=== PATIENT | female | born 1980 | race African-American/Black ===

== ENCOUNTER 2016-11-04 11:05 | Emergency (ER) | payer OTHER ==
[~2016-11-04] VITALS: Ht 167.6 cm; Wt 108.9 kg
[~2016-11-04 11:05] MED LIST: ACCUNEB SO1.25 MG/1; AMBIEN 10 MG TA10 MG PO; AMBIEN 5 MG TABL5 M1 PO; ATIVAN1 MG PO; BACTRIM DS TAB1 EACH PO; BENTYL 20 MG TA20 M1 PO; BUSPIRONE HCL10 MG PO; CITRATE OF MAG296 ML PO; CLEOCIN HCL150 MG PO; CLONAZEPAM 1 MG1 M1 PO; COLACE100 MG PO; COMPAZINE10 M2 PO; COMPAZINE10 MG PO; CREON DR 12,001 EACH PO; CYCLOBENZAPRINE5 MG PO; CYMBALTA60 MG PO; DIFLUCAN150 MG PO; DILAUDID 4 MG TA4 M1 PO; DILAUDID PO; FISH OIL 1,001000 M2 PO; FLAGYL500 M1 PO; GABAPENTIN PORT; GABAPENTIN100 MG; GABAPENTIN800 M1 PO; HYCET 7.5 MG-3473 ML PO; IBUPROFEN 600600 M1 PO; LATUDA80 MG PO; LEXAPRO20 MG PO; LOPRESSOR25 PO; LUNESTA2 MG; MECLIZINE HCL25 M1 PO; METOPROLOL SUCC50 MG PO; NEURONTIN600 MG PO; NICOTINE TRANSD14 M1 SUBQ; NORCO 10-325 T1 EACH PO; NORCO 5-325 TA1 EACH PO; NORFLEX100 MG PO; NORVASC10 MG PO; NORVASC5 MG PO; OMEPRAZOLE20 M2 PO; OXYCONTIN10 M1 PO; PERCOCET 5-3251 EACH PO; PERCOCET PO; PHENERGAN 25 MG25 M1 PO; PHENERGAN25 M1 RC; PREDNISONE 20 M20 M1 PO; PRILOSEC 20 MG20 MG PO; PRILOSEC40 MG PO; PROCHLORPERAZIN10 MG PO; PROMS25 WY RECTAL; RESTORIL15 MG PO; TIGAN300 MG PO; TONALIN CLA 11000 MG PO; TOPAMAX100 MG PO; TOPAMAX50 MG; TOPROL XL50 MG PO; TRAMADOL 50 MG50 MG PO; TRANSDERM-SCO1 PATC1 TD; ULTRAM 50MG TAB50 MG PO; VITAMIN D 5050000 I1 PO; WELLBUTRIN XL150 MG PO; XANAX 0.5 MG0.5 M1 PO; XANAX 0.5 MG0.5 MG PO; XANAX 1 MG TABLE1 MG PO; ZALEPLON 10 MG10 M1 PO; ZENPEP DR 25,01 EACH PO; ZOFRAN ODT4 MG PO; ZOFRAN4 MG PO
[2016-11-04] MEDS ORDERED: ZANAFLEX4 MG PO (11:18)
[2016-11-04] MEDS ORDERED: OXYCODONE HCL 55 MG PO (11:19)
[2016-11-04 13:14] LABS: EOSINOPHILS 0.2 % (0.0-3.0); HEMATOCRIT 42.5 % (37.0-47.0); HEMOGLOBIN 13.9 gm/dL (12.0-15.0); MCH 28.2 pg (26.0-34.0); MCHC 32.7 g/dL (28.0-37.0); MCV 86.2 fL (80.0-100.0); PLATELET COUNT 517 thou/uL (150-400); POLYS 57.8 % (36.0-66.0); RBC 4.92 mil/uL (4.20-5.00); RDW 13.2 % (10.5-14.5); WBC 12.2 thou/uL (4.0-11.0)
[2016-11-04 13:21] LABS: MANUAL DIFF NO
[2016-11-04 13:25] LABS: CREATININE 1.2 mg/dL (0.6-1.0); POTASSIUM 4.2 mmol/L (3.5-5.1)
[2016-11-04] MEDS ORDERED: VALIUM5 MG PO (15:31)
[2016-11-04] MEDS ORDERED: LIDOCAINE 2%2 %/5 GM MM (15:31)
[2016-11-04] MEDS ORDERED: BUTALB-APAP-CA1 EACH PO (15:31)
== END 2016-11-04 15:32 | disposition home or self-care (01) ==
LOC: ER 11:05
PROVIDERS: Emergency Medicine
DX: R51 Headache (principal); R42 Dizziness and giddiness; I10 Essential (primary) hypertension; M79.7 Fibromyalgia; F41.9 Anxiety disorder, unspecified; E66.01 Morbid (severe) obesity due to excess calories; K58.9 Irritable bowel syndrome, unspecified; F31.9 Bipolar disorder, unspecified; F17.210 Nicotine dependence, cigarettes, uncomplicated; Z68.38 Body mass index [BMI] 38.0-38.9, adult; Z90.49 Acquired absence of other specified parts of digestive tract; Z91.040 Latex allergy status; Z91.018 Allergy to other foods; Z88.5 Allergy status to narcotic agent; Z88.0 Allergy status to penicillin

== ENCOUNTER 2017-02-01 15:27 | Emergency (ER) | payer OTHER ==
[~2017-02-01] VITALS: Ht 172.7 cm; Wt 90.7 kg
[~2017-02-01 15:27] MED LIST changes: +BUTALB-APAP-CA1 EACH PO; +LIDOCAINE 2%2 %/5 GM MM; +OXYCODONE HCL 55 MG PO; +VALIUM5 MG PO; +ZANAFLEX4 MG PO
[2017-02-01] MEDS ORDERED: BACTRIM DS TAB1 EACH PO (16:09)
[2017-02-01] MEDS ORDERED: NORCO 10-325 T1 EACH PO (16:09)
== END 2017-02-01 16:28 | disposition home or self-care (01) ==
LOC: ER 15:27
DX: L02.412 Cutaneous abscess of left axilla (principal); L02.411 Cutaneous abscess of right axilla

== ENCOUNTER 2017-07-21 12:40 | Emergency (ER) | payer OTHER ==
[~2017-07-21] VITALS: Ht 165.1 cm; Wt 104.3 kg
[~2017-07-21 12:40] MED LIST changes: +MOBIC15 MG PO
[2017-07-21 13:03] LABS: URINE BILIRUBIN NEGATIVE (Negative); URINE BLOOD 1+ (Negative); URINE CLARITY CLEAR; URINE COLOR YELLOW; URINE GLUCOSE-RANDOM* NEGATIVE (Negative); URINE KETONES TRACE (Negative); URINE LEUKOCYTES NEGATIVE (Negative); URINE NITRITE NEGATIVE (Negative); URINE PROTEIN (DIPSTICK) NEGATIVE (Negative); URINE SPECIFIC GRAVITY 1.025 (1.005-1.035); URINE UROBILINOGEN 0.2 E.U./dl (0.2-1.0)
[2017-07-21 13:17] LABS: SQUAMOUS 0-3 Few /LPF (0-3); URINE RBC 0-2 Rare /HPF (0-2)
[2017-07-21 13:18] LABS: BACTERIA 1-9 Few /HPF (None Seen); CASTS None Seen /LPF (None Seen); CRYSTALS None Seen /LPF (None Seen); URINE WBC 0-5 Rare /HPF (0-5)
[2017-07-21 13:48] LABS: ABSOLUTE NEUTROPHILS 5.4 thou/uL (1.4-8.2); EOSINOPHILS 1.5 % (0.0-3.0); HEMATOCRIT 37.2 % (37.0-47.0); HEMOGLOBIN 12.4 gm/dL (12.0-15.0); LYMPHOCYTES 47.7 % (24.0-44.0); MCH 28.1 pg (26.0-34.0); MCHC 33.2 g/dL (28.0-37.0); MCV 84.7 fL (80.0-100.0); MONOCYTES 6.1 % (1.0-8.0); PLATELET COUNT 449 thou/uL (150-400); POLYS 43.7 % (36.0-66.0); RBC 4.39 mil/uL (4.20-5.00); RDW 14.8 % (10.5-14.5); WBC 12.3 thou/uL (4.0-11.0)
[2017-07-21 13:52] LABS: AMP/METHAMP Negative (Negative); BARBITURATES Negative (Negative); BENZODIAZEPINES POSITIVE (Negative); COCAINE Negative (Negative); METHADONE Negative (Negative); OPIATES POSITIVE (Negative); PCP Negative (Negative)
[2017-07-21 13:56] LABS: CALCIUM 8.9 mg/dL (8.5-10.1); CREATININE 0.9 mg/dL (0.6-1.0); POTASSIUM 3.8 mmol/L (3.5-5.1)
[2017-07-21 15:00] VITALS: BP 142/94
[2017-07-21] MEDS ORDERED: ACETAMINOPHEN-1 EAC1 PO (15:02)
[2017-07-21] MEDS ORDERED: IBUPROFEN 600600 M1 PO (15:02)
[2017-12-23] MEDS ORDERED: CARVEDILOL12.5 MG PO (11:20)
[2017-12-23] MEDS ORDERED: PANTOPRAZOLE SO40 M1 PO (11:20)
[2017-12-23] MEDS ORDERED: COZAAR 50 MG TA50 M1 PO (11:20)
[2017-12-23] MEDS ORDERED: ASPIR 8181 MG PO (11:20)
[2018-01-13] MEDS ORDERED: PROMS25 WY RECTAL (14:22)
[2018-01-13] MEDS ORDERED: NORCO 5-325 TA1 EACH PO (14:22)
[2018-01-13] MEDS ORDERED: ZOFRAN ODT8 MG PO (14:22)
[2018-01-13] MEDS ORDERED: NORVASC5 MG PO (15:28)
[2018-01-14] MEDS ORDERED: MACROBID 100 M100 M1 PO (16:54)
== END 2017-07-21 15:05 | disposition home or self-care (01) ==
LOC: ER 12:40
PROVIDERS: Nurse Practitioner
DX: D25.9 Leiomyoma of uterus, unspecified (principal); I10 Essential (primary) hypertension; M79.7 Fibromyalgia; F31.9 Bipolar disorder, unspecified; F17.210 Nicotine dependence, cigarettes, uncomplicated; Z90.49 Acquired absence of other specified parts of digestive tract; Z91.040 Latex allergy status; Z88.0 Allergy status to penicillin; Z88.6 Allergy status to analgesic agent; Z91.018 Allergy to other foods

== ENCOUNTER → 2017-10-05 | Emergency (ER) | payer OTHER ==
[~2017-10-05] VITALS: Ht 167.6 cm; Wt 104.3 kg
[~2017-10-05] MED LIST changes: +ACETAMINOPHEN-1 EAC1 PO
== END ==
LOC: ER 06:46
DX: R11.2 Nausea with vomiting, unspecified (principal); R10.9 Unspecified abdominal pain; R20.2 Paresthesia of skin; R19.7 Diarrhea, unspecified; F41.9 Anxiety disorder, unspecified; I10 Essential (primary) hypertension; F31.9 Bipolar disorder, unspecified; F17.210 Nicotine dependence, cigarettes, uncomplicated; Z90.89 Acquired absence of other organs; Z91.040 Latex allergy status; Z88.0 Allergy status to penicillin; Z88.5 Allergy status to narcotic agent; Z91.018 Allergy to other foods

== ENCOUNTER 2017-11-22 09:15 | Emergency (ER) | payer OTHER ==
[~2017-11-22] VITALS: Ht 167.6 cm; Wt 104.3 kg
--- NOTE | ~2017-11-22 | EKG ---
[place] [address] [facility] [place] [address] ELECTROCARDIOGRAM REPORT Name: KELLY JO [facility] [id number] Admission: 11/22/17 Attend Phys: Discharge: 11/22/17 Date of : 80 Report #: [id number] THIS REPORT FOR: //name// [facility] ED Test Date: 2017-11-22 Test Time: 11:07:38 Pat Name: KELLY JO Department: Room: Gender: F Gwot [employer] Intelligence Support: david : 1980 Requested By: Shelbi Molina Order Number: [id number] MD: Steve Macias Measurements Intervals [place] Rate: 92 P: [place]: QRS: 36 QRSD: 77 T: -29 QT: 364 QTc: 451 Interpretive Statements Sinus rhythm Probable LVH with secondary repol abnrm Compared to ECG 07/04/2016 02:41:37 Sinus tachycardia no longer present Electronically Signed On 11-23-2017 7:54:29 CDT by Steve Macais [email or web address] <ELECTRONICALLY SIGNED> By: Steve Macias MD, [facility] 11/23/17 0754 D: [id number] Steve Macias MD, FACC /EPI
[2017-11-22 10:09] LABS: ABSOLUTE NEUTROPHILS 4.8 thou/uL (1.4-8.2); BASOPHILS 0.8 % (0.0-2.0); EOSINOPHILS 0.5 % (0.0-3.0); HEMOGLOBIN 12.5 gm/dL (12.0-15.0); LYMPHOCYTES 39.7 % (24.0-44.0); MCH 29.4 pg (26.0-34.0); MCHC 33.8 g/dL (28.0-37.0); MCV 87.1 fL (80.0-100.0); MONOCYTES 5.5 % (1.0-8.0); PLATELET COUNT 398 thou/uL (150-400); POLYS 53.5 % (36.0-66.0); RBC 4.24 mil/uL (4.20-5.00)
[2017-11-22 10:15] LABS: URINE BILIRUBIN NEGATIVE (Negative); URINE BLOOD NEGATIVE (Negative); URINE CLARITY CLEAR; URINE COLOR YELLOW; URINE GLUCOSE-RANDOM* NEGATIVE (Negative); URINE KETONES NEGATIVE (Negative); URINE LEUKOCYTES-REFLEX NEGATIVE (Negative); URINE NITRITE-REFLEX NEGATIVE (Negative); URINE PROTEIN (DIPSTICK) NEGATIVE (Negative); URINE SPECIFIC GRAVITY 1.015 (1.005-1.035); URINE UROBILINOGEN 0.2 E.U./dl (0.2-1.0)
[2017-11-22 10:16] LABS: CREATININE 1.2 mg/dL (0.6-1.0); POTASSIUM 4.1 mmol/L (3.5-5.1)
[2017-11-22 10:22] LABS: ALBUMIN 3.8 g/dL (3.4-5.0); TOTAL BILIRUBIN 0.3 mg/dL (<0.1-1.0); TOTAL PROTEIN 8.5 g/dL (6.4-8.2)
[2017-11-22] MEDS ORDERED: CLOTRIMAZOLE 1%15 G1 TOP (11:12)
[2017-11-22] MEDS ORDERED: ANTIVERT25 MG PO (11:12)
== END 2017-11-22 11:33 | disposition home or self-care (01) ==
LOC: ER 09:15
PROVIDERS: Emergency Medicine
DX: B37.9 Candidiasis, unspecified (principal); R42 Dizziness and giddiness; E86.9 Volume depletion, unspecified; F17.210 Nicotine dependence, cigarettes, uncomplicated; M79.7 Fibromyalgia; I10 Essential (primary) hypertension; F41.9 Anxiety disorder, unspecified; E66.01 Morbid (severe) obesity due to excess calories; F31.9 Bipolar disorder, unspecified; Z90.49 Acquired absence of other specified parts of digestive tract; Z91.040 Latex allergy status; Z88.0 Allergy status to penicillin; Z88.5 Allergy status to narcotic agent; Z91.018 Allergy to other foods

== ENCOUNTER 2017-11-25 20:03 | Inpatient (IN) | payer OTHER ==
[~2017-11-25] VITALS: Ht 167.6 cm; Wt 104.3 kg
--- NOTE | ~2017-11-25 | EKG ---
[place] [address] [employer] ([employer] [place] [address] ELECTROCARDIOGRAM REPORT Name: KELLY OJ Room #: 426-P ADM IN M.R.#: [id number] Admission: 11/25/17 Attend Phys: James Knight MD Discharge: Date of : 80 Report #: [id number] THIS REPORT FOR: //name// [facility] ED Test Date: 2017-11-25 Test Time: 20:23:06 Pat Name: KELLY JO Department: Room: Gender: F Drawer In: MZOOK : 1980 Requested By: Melonie Everett Order Number: [id number] MD: Steve Macias Measurements Intervals [place] Rate: 121 P: 43 DE: 136 QRS: 49 QRSD: 82 T: -4 QT: 334 QTc: 474 Interpretive Statements Sinus tachycardia Nonspecific ST segment abnormality Borderline repolarization abnormality Compared to ECG 11/22/2017 11:07:38 Heart rate has increased Electronically Signed On 11-27-2017 8:41:51 CDT by Steve Macias [email or web address] <ELECTRONICALLY SIGNED> By: Steve Macias MD, [facility] 11/27/17 0841 22 22 Steve Macias MD, [facility] /EPI
[~2017-11-25 20:03] MED LIST changes: +ANTIVERT25 MG PO; +CLOTRIMAZOLE 1%15 G1 TOP
[2017-11-25 20:04] VITALS: BP 173/112
[2017-11-25 20:26] LABS: HEMATOCRIT 39.3 % (37.0-47.0); HEMOGLOBIN 13.6 gm/dL (12.0-15.0); MCH 29.4 pg (26.0-34.0); MCHC 34.6 g/dL (28.0-37.0); MCV 84.9 fL (80.0-100.0); PLATELET COUNT 560 thou/uL (150-400); RBC 4.63 mil/uL (4.20-5.00); RDW 14.8 % (10.5-14.5); WBC 21.6 thou/uL (4.0-11.0)
[2017-11-25 20:34] LABS: CALCIUM 10.1 mg/dL (8.5-10.1); CREATININE 1.4 mg/dL (0.6-1.0); POTASSIUM 3.4 mmol/L (3.5-5.1)
[2017-11-25 20:49] LABS: ALBUMIN 4.5 g/dL (3.4-5.0); TOTAL BILIRUBIN 0.6 mg/dL (<0.1-1.0); TOTAL PROTEIN 9.6 g/dL (6.4-8.2)
[2017-11-25 21:10] LABS: ABSOLUTE NEUTROPHILS 17.5 thou/uL (1.4-8.2); ANISOCYTOSIS SLIGHT
[2017-11-25 22:01] LABS: URINE BLOOD NEGATIVE (Negative); URINE CLARITY CLEAR; URINE COLOR YELLOW; URINE GLUCOSE-RANDOM* NEGATIVE (Negative); URINE KETONES 3+ (Negative); URINE LEUKOCYTES-REFLEX NEGATIVE (Negative); URINE NITRITE-REFLEX NEGATIVE (Negative); URINE PROTEIN (DIPSTICK) 2+ (Negative); URINE SPECIFIC GRAVITY 1.025 (1.005-1.035); URINE UROBILINOGEN 0.2 E.U./dl (0.2-1.0)
[2017-11-25 22:07] LABS: ICTOTEST (BILI CONFIRMATORY) Negative (Negative); URINE BILIRUBIN NEGATIVE (Negative); URINE REDUCING SUBSTANCE NEGATIVE
[2017-11-25 22:36] VITALS: BP 172/87
[2017-11-25 22:59] VITALS: BP 136/78
[2017-11-26 04:09] VITALS: BP 151/82
[2017-11-26 07:36] LABS: CALCIUM 9.2 mg/dL (8.5-10.1); CREATININE 0.9 mg/dL (0.6-1.0)
[2017-11-26 08:06] VITALS: BP 145/85
[2017-11-26 10:10] LABS: HEMATOCRIT 35.7 % (37.0-47.0); MCHC 33.5 g/dL (28.0-37.0); MCV 86.5 fL (80.0-100.0); RBC 4.12 mil/uL (4.20-5.00); RDW 14.8 % (10.5-14.5); WBC 17.7 thou/uL (4.0-11.0)
[2017-11-26 16:00] VITALS: BP 149/89
[2017-11-26 20:51] VITALS: BP 150/95
[2017-11-27 04:00] VITALS: BP 155/100
[2017-11-27 05:56] LABS: CALCIUM 8.5 mg/dL (8.5-10.1); CREATININE 0.8 mg/dL (0.6-1.0); POTASSIUM 4.1 mmol/L (3.5-5.1)
[2017-11-27] MEDS ORDERED: NORCO 5-325 TA1 EACH PO (09:18)
[2017-11-27 14:26] VITALS: BP 155/100
== END 2017-11-27 15:23 | disposition home or self-care (01) | DRG 438 ==
LOC: ER 20:03 → 4E 22:29 → EROBS 22:29 → 4E 23:01 → ENTRNSPT 11-27 14:45 → EDTRNSPTSTS 11-27 14:51 → 4E 11-27 15:23
PROVIDERS: Hospitalist; Nurse Practitioner Family; Physician Assistant
DX: K85.90 Acute pancreatitis without necrosis or infection, unspecified (principal); N17.0 Acute kidney failure with tubular necrosis; R65.10 Systemic inflammatory response syndrome (SIRS) of non-infectious origin without acute organ dysfunction; I10 Essential (primary) hypertension; F41.9 Anxiety disorder, unspecified; F31.9 Bipolar disorder, unspecified; E66.01 Morbid (severe) obesity due to excess calories; K58.9 Irritable bowel syndrome, unspecified; K75.9 Inflammatory liver disease, unspecified; E86.0 Dehydration; Z68.37 Body mass index [BMI] 37.0-37.9, adult; Z90.49 Acquired absence of other specified parts of digestive tract; Z88.0 Allergy status to penicillin; Z88.6 Allergy status to analgesic agent; Z91.040 Latex allergy status; Z87.891 Personal history of nicotine dependence; Z79.899 Other long term (current) drug therapy
CPT/HCPCS: 10084

== ENCOUNTER 2018-01-02 18:07 | Inpatient (IN) | payer OTHER ==
[~2018-01-02] VITALS: Ht 167.6 cm; Wt 93.4 kg
--- NOTE | ~2018-01-02 | EKG ---
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 : 1980 Requested By: Flash Marrero Order Number: [id number] MD: Steve Macias Measurements Intervals [place] Rate: 107 P: 34 MA: 129 QRS: 27 QRSD: 102 T: 268 QT: 357 QTc: 477 Interpretive Statements Sinus tachycardia Left atrial enlargement LVH with secondary repolarization abnormality Compared to ECG 12/22/2017 06:41:20 Atrial abnormality now present Left ventricular hypertrophy now present Electronically Signed On 01-03-2018 13:01:49 CDT by Steve Macias [email or web address] <ELECTRONICALLY SIGNED> By: Steve Macias MD, [facility] 01/03/18 1301 183 30 Steve Macias MD, [facility] /EPI
[~2018-01-02 18:07] MED LIST changes: +ASPIR 8181 MG PO; +CARVEDILOL12.5 MG PO; +COZAAR 50 MG TA50 M1 PO; +PANTOPRAZOLE SO40 M1 PO
[2018-01-02 18:30] VITALS: BP 204/129
[2018-01-02 19:33] LABS: HEMATOCRIT 38.7 % (37.0-47.0); MCH 28.8 pg (26.0-34.0); MCHC 33.6 g/dL (28.0-37.0); MCV 85.7 fL (80.0-100.0); RBC 4.51 mil/uL (4.20-5.00); RDW 14.7 % (10.5-14.5); WBC 6.7 thou/uL (4.0-11.0)
[2018-01-02 19:50] LABS: ANION GAP 6 mmol/L (7-16); BUN 8 mg/dL (7-18); CALCIUM 9.9 mg/dL (8.5-10.1); CHLORIDE 106 mmol/L (98-107); CO2 27 mmol/L (21-32); CREATININE 1.2 mg/dL (0.6-1.0); GLUCOSE 95 mg/dL (74-106); POTASSIUM 4.5 mmol/L (3.5-5.1); SODIUM 139 mmol/L (136-145)
[2018-01-02 20:00] LABS: MAGNESIUM 1.9 mg/dL (1.8-2.4); SGOT 77 U/L (15-37); SGPT 93 U/L (30-65); TOTAL BILIRUBIN 0.4 mg/dL (<0.1-1.0); TOTAL PROTEIN 8.6 g/dL (6.4-8.2); TROPONIN-I <0.06 ng/mL (<0.06)
[2018-01-02 21:08] LABS: URINE BILIRUBIN NEGATIVE (Negative); URINE BLOOD NEGATIVE (Negative); URINE CLARITY CLEAR; URINE COLOR YELLOW; URINE GLUCOSE-RANDOM* NEGATIVE (Negative); URINE KETONES NEGATIVE (Negative); URINE LEUKOCYTES-REFLEX NEGATIVE (Negative); URINE NITRITE-REFLEX NEGATIVE (Negative); URINE PROTEIN (DIPSTICK) NEGATIVE (Negative); URINE UROBILINOGEN 0.2 E.U./dl (0.2-1.0)
[2018-01-02 21:28] VITALS: BP 182/119
[2018-01-02 21:28] LABS: AMP/METHAMP Negative (Negative); BARBITURATES Negative (Negative); BENZODIAZEPINES POSITIVE (Negative); COCAINE Negative (Negative); METHADONE Negative (Negative); OPIATES Negative (Negative); PCP Negative (Negative)
[2018-01-02] MEDS ORDERED: COZAAR 50 MG TA50 M2 PO (21:45)
[2018-01-02 21:58] VITALS: BP 175/116
[2018-01-02 22:18] VITALS: BP 153/107
[2018-01-03 00:13] VITALS: BP 188/122
[2018-01-03 05:32] VITALS: BP 153/102
[2018-01-03 06:05] LABS: HEMATOCRIT 36.7 % (37.0-47.0); HEMOGLOBIN 12.2 gm/dL (12.0-15.0); MCH 28.4 pg (26.0-34.0); MCHC 33.2 g/dL (28.0-37.0); MCV 85.4 fL (80.0-100.0); PLATELET COUNT 401 thou/uL (150-400); RDW 14.5 % (10.5-14.5); WBC 9.6 thou/uL (4.0-11.0)
[2018-01-03 06:23] LABS: MAGNESIUM 1.5 mg/dL (1.8-2.4); POTASSIUM 3.8 mmol/L (3.5-5.1)
[2018-01-03 06:33] LABS: ABSOLUTE NEUTROPHILS 2.8 thou/uL (1.4-8.2); ANISOCYTOSIS 1+; POLYCHROMASIA OCCASIONAL
[2018-01-03 07:19] VITALS: BP 155/111
[2018-01-03 13:29] VITALS: BP 160/135
[2018-01-03 15:04] VITALS: BP 153/105
[2018-01-03 19:48] VITALS: BP 151/105
[2018-01-04 00:08] VITALS: BP 170/88
[2018-01-04 04:42] VITALS: BP 177/94
[2018-01-04 07:05] VITALS: BP 157/121
[2018-01-04] MEDS ORDERED: LOPRESSOR100 M1 PO (10:21)
[2018-01-04] MEDS ORDERED: HYDROCODONE-AP1 EAC6 PO (10:30)
[2018-01-04] MEDS ORDERED: ATIVAN0.5 MG PO (10:30)
[2018-01-04 11:25] VITALS: BP 157/121
== END 2018-01-04 12:54 | disposition home or self-care (01) | DRG 682 ==
LOC: ER 18:07 → EROBS 20:47 → 2N 20:47 → ENTRNSPT 01-04 12:34 → EDTRNSPTSTS 01-04 12:39 → 2N 01-04 12:54
PROVIDERS: Emergency Medicine; Nurse Practitioner
PROC: 05HY33Z Insertion of Infusion Device into Upper Vein, Percutaneous Approach (ICD-10-PCS; principal; 2018-01-03)
DX: N17.9 Acute kidney failure, unspecified (principal); K85.90 Acute pancreatitis without necrosis or infection, unspecified; I51.81 Takotsubo syndrome; K86.1 Other chronic pancreatitis; I10 Essential (primary) hypertension; F41.9 Anxiety disorder, unspecified; E66.01 Morbid (severe) obesity due to excess calories; F31.9 Bipolar disorder, unspecified; K29.70 Gastritis, unspecified, without bleeding; K29.80 Duodenitis without bleeding; R00.0 Tachycardia, unspecified; I16.0 Hypertensive urgency; G89.4 Chronic pain syndrome; K58.9 Irritable bowel syndrome, unspecified; Z68.33 Body mass index [BMI] 33.0-33.9, adult; Z90.49 Acquired absence of other specified parts of digestive tract; Z88.0 Allergy status to penicillin; Z88.6 Allergy status to analgesic agent; Z91.040 Latex allergy status; Z87.891 Personal history of nicotine dependence; Z79.899 Other long term (current) drug therapy
CPT/HCPCS: 10081; 27001; 52295

== ENCOUNTER 2018-04-04 09:08 | Emergency (ER) | payer OTHER ==
[~2018-04-04] VITALS: Ht 152.4 cm; Wt 81.7 kg
[~2018-04-04 09:08] MED LIST changes: +ATIVAN0.5 MG PO; +COZAAR 50 MG TA50 M2 PO; +HYDROCODONE-AP1 EAC6 PO; +LOPRESSOR100 M1 PO; +MACROBID 100 M100 M1 PO; +ZOFRAN ODT8 MG PO
[2018-04-04] MEDS ORDERED: FLEXERIL PO (11:33)
[2018-04-04] MEDS ORDERED: TYLENOL EXTRA500 MG PO (11:33)
[2018-04-04 11:46] VITALS: BP 128/72
== END 2018-04-04 11:47 | disposition home or self-care (01) ==
LOC: ER 09:08
DX: S09.90XA Unspecified injury of head, initial encounter (principal); F17.210 Nicotine dependence, cigarettes, uncomplicated; I10 Essential (primary) hypertension; M79.7 Fibromyalgia; F41.9 Anxiety disorder, unspecified; E66.01 Morbid (severe) obesity due to excess calories; K58.9 Irritable bowel syndrome, unspecified; F31.9 Bipolar disorder, unspecified; Z90.49 Acquired absence of other specified parts of digestive tract; Z91.040 Latex allergy status; Z91.018 Allergy to other foods; Z88.0 Allergy status to penicillin; Z88.5 Allergy status to narcotic agent; Z68.35 Body mass index [BMI] 35.0-35.9, adult; W10.9XXA Fall (on) (from) unspecified stairs and steps, initial encounter; Y92.89 Other specified places as the place of occurrence of the external cause; Y93.89 Activity, other specified; Y99.8 Other external cause status

== ENCOUNTER 2018-07-06 02:21 | Emergency (ER) | payer OTHER ==
[~2018-07-06] VITALS: Ht 170.2 cm; Wt 81.7 kg
[~2018-07-06 02:21] MED LIST changes: +FLEXERIL PO; +TYLENOL EXTRA500 MG PO
[2018-07-06 04:05] LABS: ABSOLUTE NEUTROPHILS 4.1 thou/uL (1.4-8.2); BASOPHILS 0.8 % (0.0-2.0); EOSINOPHILS 0.9 % (0.0-3.0); HEMATOCRIT 33.2 % (37.0-47.0); HEMOGLOBIN 11.2 gm/dL (12.0-15.0); LYMPHOCYTES 45.7 % (24.0-44.0); MCH 31.8 pg (26.0-34.0); MCHC 33.8 g/dL (28.0-37.0); MONOCYTES 8.2 % (1.0-8.0); PLATELET COUNT 408 thou/uL (150-400); POLYS 44.4 % (36.0-66.0); RBC 3.53 mil/uL (4.20-5.00); RDW 14.5 % (10.5-14.5); WBC 9.3 thou/uL (4.0-11.0)
[2018-07-06 04:10] LABS: AMP/METHAMP Negative (Negative); BARBITURATES Negative (Negative); BENZODIAZEPINES POSITIVE (Negative); COCAINE Negative (Negative); METHADONE Negative (Negative); OPIATES POSITIVE (Negative); PCP Negative (Negative)
[2018-07-06 04:11] LABS: ANION GAP 13 mmol/L (7-16); BUN 13 mg/dL (7-18); CALCIUM 8.7 mg/dL (8.5-10.1); CHLORIDE 105 mmol/L (98-107); CO2 22 mmol/L (21-32); CREATININE 1.2 mg/dL (0.6-1.0); GLUCOSE 106 mg/dL (74-106); POTASSIUM 4.1 mmol/L (3.5-5.1); SODIUM 140 mmol/L (136-145)
[2018-07-06 04:20] LABS: ALBUMIN 3.7 g/dL (3.4-5.0); DIRECT BILIRUBIN < 0.1 mg/dL (<0.1-0.3); LIPASE 274 U/L (73-393); SGOT 17 U/L (15-37); SGPT 36 U/L (30-65); TOTAL BILIRUBIN 0.3 mg/dL (<0.1-1.0); TOTAL PROTEIN 7.3 g/dL (6.4-8.2); TROPONIN-I <0.06 ng/mL (<0.06)
[2018-07-06] MEDS ORDERED: PHENERGAN 25 MG25 MG PO (04:44)
[2018-07-06 05:19] VITALS: BP 133/85
--- NOTE | 2018-07-06 08:38 | EKG ---
[place] [address] [facility] [place] [address] ELECTROCARDIOGRAM REPORT Name: KELLY JO ZAIDA [facility] [id number] ������������������ Admission: 07/06/18 ������������������ Attend Phys: Discharge: 07/06/18 ������������������ Date of : 80 Report #: [id number] ����������������������������������������������������������������� [id number] THIS REPORT FOR: //name// [facility] ED Test Date: 2018-07-06 Test Time: 03:01:23 Pat Name: KELLY JO Department: Room: Gender: F High [employer] Professional: KENNY : 1980 Requested By: Jorge Royal Order Number: [id number] MD: Steve Macias Measurements Intervals [place] Rate: 112 P: 52 VT: 123 QRS: 56 QRSD: 90 T: -9 QT: 340 QTc: 464 Interpretive Statements Sinus tachycardia Borderline repolarization abnormality Compared to ECG 01/13/2018 12:31:11 T-wave abnormality no longer present Electronically Signed On 07-06-2018 8:37:52 INDEXER by Steve Macias [email or web address] ��������������������������������������������� <ELECTRONICALLY SIGNED> ���������������������������������������� By: Steve Macias MD, [facility] ��������������������������������������������� 07/06/18 0837 030 0 Steve Macias MD, FACC /EPI
== END 2018-07-06 05:23 | disposition home or self-care (01) ==
LOC: ER 02:21
PROVIDERS: Emergency Medicine
DX: R07.89 Other chest pain (principal); R10.84 Generalized abdominal pain; I10 Essential (primary) hypertension; M79.7 Fibromyalgia; F41.9 Anxiety disorder, unspecified; E66.01 Morbid (severe) obesity due to excess calories; Z68.28 Body mass index [BMI] 28.0-28.9, adult; F31.9 Bipolar disorder, unspecified; Z90.49 Acquired absence of other specified parts of digestive tract; Z88.0 Allergy status to penicillin; Z88.5 Allergy status to narcotic agent; Z91.040 Latex allergy status; Z91.02 Food additives allergy status

== ENCOUNTER 2020-10-12 21:19 | Emergency (ER) | payer OTHER ==
[~2020-10-12] VITALS: Ht 167.6 cm; Wt 81.7 kg
--- NOTE | ~2020-10-12 | EMS ---
[address] [address] EMS Patient Care Report Name: KELLY JO Room #: REG RUSS [facility]#: [id number] Admission: 10/12/20 Attend Phys: Discharge: Date of : [birth year] Report #: [id number] THIS REPORT FOR: //name// Report Transmitted: 10/12/2020 21:17 EMS Care Summary [place], [place]/[facility] Incident [id number] @ 10/12/2020 20:51 Incident [address] [place] [address] Patient KELLY JO Female, 40 Years 1980 Patient Address [address] [place] [address] Patient History Cardiac Condition - Other,Pneumonia,Anxiety, Patient Allergies Latex allergy,Penicillin allergy,Morphine, Patient Medications Alprazolam, Chief Complaint LEG/ANKLE/FOOT PAIN Disposition Transported No Lights/[place] Dispatch Reason Sick Person Transported To [facility] Narrative UPON ARRIVAL PT SITTING UPRIGHT ON COUCH CONSCIOUS AND ALERT. PT STATES SHE BEGAN HAVING LEG/ ANKLE / FOOT PAIN YESTERDAY THAT BEGAN RANDOMLY. SHE DOESN'T THINK SHE HAD ANY KIND OF TRAUMATIC INJURY BUT STATES SHE'S BEEN DEPRESSED SO SHE DOESN'T KNOW FOR SURE. PT PAIN HAS BEEN INCREASING THROUGHOUT THE DAY ALONG [address] [address] EMS Patient Care Report Name: KELLY JO Room #: REG RUSS Fortune#: [id number] Admission: 10/12/20 Attend Phys: Discharge: Date of : 80 Report #: [id number] WITH BILAT ANKLE SWELLING AND SOME SWELLING OF THE BOG TOES. PT HAS BEEN UNABLE TO WALK MORE THAN A FEW STEPS. PT ASSISTED TO COT AND TRANSPORTED TO [facility]. Initial Vitals @21:05P: 120,R: 16,BP: 178/73,Pain: 10/10,GCS: 15,Revised Trauma: 12, @21:11P: 110,R: 16,BP: 133/85,Pain: 10/10,GCS: 15,Revised Trauma: 12, Assessments @21:00MENTAL:Person Oriented,Time Oriented,Event Oriented,Place Oriented,SKIN:HEENT:Head/Face: No Abnormalities,LUNG SOUNDS:General: No Abnormalities,ABDOMEN:General: No Abnormalities,PELVIS//GI:EXTREMITIES:Left Leg: Other,Right Leg: Other,Left Arm: No Abnormalities,Right Arm: No Abnormalities,PULSE:Radial: 2+ Normal,NEURO:No Abnormalities, Impression Extremity Pain Procedures @21:00ALS AssessmentResponse: UnchangedSucceeded Timeline 20:46,Call Received 20:46,Dispatch Notified 20:51,Dispatched 20:51,En Route 20:54,On Scene 20:55,At Patient 21:00,ALS Assessment,Response: UnchangedSucceeded, 21:03,Depart Scene 21:05,BP: 178/73 M,PULSE: 120,RR: 16 R,SPO2: Ox,ETCO2: ,BG: ,PAIN: 10,GCS: 15, 21:11,BP: 133/85 M,PULSE: 110,RR: 16 R,SPO2: Ox,ETCO2: ,BG: ,PAIN: 10,GCS: 15, 21:16,At Destination 21:31,Call Closed Disclaimer [email or web address] Copyright 2020 [employer] This EMS Care Summary contains data elements from the applicable legal record (which may be displayed differently). It is designed to provide pertinent information for the following purposes: continuity of care, clinical quality, and state data reporting. The complete legal record is available to ED staff and administrators of the receiving hospital in [employer]'s Patient Tracker. All data is provided "as is."
[~2020-10-12 21:19] MED LIST changes: +PHENERGAN 25 MG25 MG PO
[2020-10-12] MEDS ORDERED: NORCO5 PO (22:42)
[2020-10-12 23:00] VITALS: BP 150/87
== END 2020-10-12 23:00 | disposition home or self-care (01) ==
LOC: ER 21:19
DX: M79.605 Pain in left leg (principal); M79.604 Pain in right leg; I10 Essential (primary) hypertension; M79.7 Fibromyalgia; E66.01 Morbid (severe) obesity due to excess calories; Z91.040 Latex allergy status; Z88.0 Allergy status to penicillin; Z88.5 Allergy status to narcotic agent; Z79.899 Other long term (current) drug therapy